=== PATIENT | female | born 1955 | race Caucasian/White ===

== ENCOUNTER → 2016-10-31 | Outpatient (CLI) | payer OTHER ==
[~2016-10-31] MED LIST: ACET-1256 PO; ADVIN50050 INH; ALBUAER19 INH; CYPR4TAB31 PO; GLC500 PO; LEVO25TA5 PO; LPR25 PO; MULT-884 PO; OMEP40CA PO; TRAM-10 PO
[2016-10-31 12:54] LABS: ALB/GLOB RATIO 1.2 (0.9-2); ALKALINE PHOSPHATASE 62 U/L (45-117); ALT/SGPT 17 U/L (12-78); AST/SGOT 13 U/L (15-37); BLOOD UREA NITROGEN 20 mg/dl (7-18); BUN/CREATININE RATIO 20.6 (10-20); CALCIUM 9.2 mg/dl (8.5-10.1); CARBON DIOXIDE 27 mmol/L (21-32); CHLORIDE 105 mmol/L (98-107); CREATININE 0.99 mg/dl (0.60-1.20); GLUCOSE 99 mg/dl (70-99); POTASSIUM 4.7 mmol/L (3.5-5.1); SODIUM 141 mmol/L (136-145)
== END | disposition home or self-care (01) ==
LOC: C.LABBFT 10:32
PROVIDERS: ATTEND Nurse Practitioner
DX: E88.81 Metabolic syndrome and other insulin resistance (principal)

== ENCOUNTER → 2017-08-07 | Outpatient (CLI) | payer OTHER | END | disposition home or self-care (01) | LOC: C.LABSPEC 17:09 | PROVIDERS: ATTEND Dermatology | DX: I87.2 Venous insufficiency (chronic) (peripheral) (principal) ==

== ENCOUNTER → 2017-08-09 | Outpatient (CLI) | payer OTHER ==
[2017-08-09 12:22] LABS: ESTIMATED AVERAGE GLUCOSE 111 mg/dl; HA1C FLAG Normal (Normal)
[2017-08-09 12:32] LABS: ALT/SGPT 16 U/L (12-78); AST/SGOT 11 U/L (15-37); BLOOD UREA NITROGEN 26 mg/dl (7-18); BUN/CREATININE RATIO 28.9 (10-20); CARBON DIOXIDE 26 mmol/L (21-32); CHLORIDE 110 mmol/L (98-107); GLUCOSE 93 mg/dl (70-99); POTASSIUM 3.9 mmol/L (3.5-5.1); SODIUM 140 mmol/L (136-145)
[2017-08-09 12:40] LABS: ALB/GLOB RATIO 1.1 (0.9-2); ALKALINE PHOSPHATASE 73 U/L (45-117); CHOLESTEROL 163 mg/dl (0-200); CHOLESTEROL/HDL RATIO 2.4; HDL CHOLESTEROL 68 mg/dl; LDL CHOLESTEROL CALCULATED 76 mg/dl; TRIGLYCERIDES 96 mg/dl (0-150); VERY LOW DENSITY LIPOPROT CALC 19 mg/dl
== END | disposition home or self-care (01) ==
LOC: C.LABBFT 08:42
PROVIDERS: ATTEND Nurse Practitioner
DX: E03.9 Hypothyroidism, unspecified (principal); E88.81 Metabolic syndrome and other insulin resistance

== ENCOUNTER → 2017-11-28 | Outpatient (CLI) | payer OTHER ==
[2017-11-28 17:15] LABS: BASO % 0.6 %; BASO ABS # 0.06 K/uL (0-0.2); EOS % 3.1 %; EOS ABS # 0.29 K/uL (0-0.5); HEMATOCRIT 42.3 % (37-47); HEMOGLOBIN 13.7 g/dL (12.0-16.0); IG# 0.03 K/uL (0.00-0.02); LYMPH % 28.3 %; LYMPH ABS # 2.62 K/uL (1.2-3.4); MEAN CELL VOLUME 99.5 fL (80-100); MEAN CORPUSCULAR HEMOGLOBIN 32.2 pg (25-34); MEAN CORPUSCULAR HGB CONC 32.4 g/dl (32-36); MEAN PLATELET VOLUME 10.5 fL (7.4-10.4); MONO % 8.2 %; MONO ABS # 0.76 K/uL (0.11-0.59); NEUT % 59.5 %; NEUT ABS # 5.49 K/uL (1.4-6.5); PLATELET COUNT 305 K/uL (130-400); RED CELL DISTRIBUTION WIDTH CV 13.9 % (11.5-14.5); RED CELL DISTRIBUTION WIDTH SD 50.6 fL (36.4-46.3); WHITE BLOOD COUNT 9.25 K/uL (4.8-10.8)
[2017-11-28 17:38] LABS: BLOOD UREA NITROGEN 24 mg/dl (7-18); CALCIUM 9.1 mg/dl (8.5-10.1); CARBON DIOXIDE 27 mmol/L (21-32); CREATININE 1.01 mg/dl (0.60-1.20); GLUCOSE 92 mg/dl (70-99); POTASSIUM 4.4 mmol/L (3.5-5.1); SODIUM 138 mmol/L (136-145)
== END | disposition home or self-care (01) ==
LOC: C.LABBFT 13:41
PROVIDERS: ATTEND Nurse Practitioner
DX: E55.9 Vitamin D deficiency, unspecified (principal); E88.81 Metabolic syndrome and other insulin resistance

== ENCOUNTER 2019-07-25 06:17 | Inpatient (IN) ==
--- NOTE | 2019-06-17 09:18 | PAT Medication Instructions ---
Medication Instructions Date of Service June 17, 2019 Home Medications Medication Instructions Recorded fluticasone propionate 50 2 sprays INTRANASAL DAILY #19.8 gm 03/31/19 mcg/actuation nasal spray,suspension meloxicam 7.5 mg tablet 7.5 mg PO BID PRN #60 tab 03/31/19 albuterol sulfate HFA 90 mcg/actuation aerosol inhaler 2 inh INHALATION UD PRN ascorbate calcium (vitamin C) 500 mg tablet 500 mg PO DAILY escitalopram 10 mg tablet 10 mg PO QAM fluticasone 500 mcg-salmeterol 50 mcg/dose blistr powdr for inhalation 1 puffs INHALATION BID fluticasone propionate 50 mcg/actuation nasal spray,suspension 2 sprays INTRANASAL DAILY levothyroxine 25 mcg tablet 25 mcg PO QAM meloxicam 7.5 mg tablet 7.5 mg PO BID PRN metformin 500 mg tablet 500 mg PO BID metoprolol succinate ER 100 mg tablet,extended release 24 hr 100 mg PO BID multivitamin tablet 1 tab PO DAILY omeprazole 40 mg capsule,delayed release 40 mg PO QAM silver sulfadiazine 1 % topical cream 1 appln TOPICAL UD PRN tramadol 50 mg tablet 50 mg PO BID PRN ASK your surgeon for instructions meloxicam 7.5 mg tablet 7.5 mg PO BID PRN STOP taking 24 hours before surgery silver sulfadiazine 1 % topical cream 1 appln TOPICAL UD PRN DO NOT take the morning of surgery ascorbate calcium (vitamin C) 500 mg tablet 500 mg PO DAILY metformin 500 mg tablet 500 mg PO BID multivitamin tablet 1 tab PO DAILY Take morning of surgery With a small sip of water, OTHERWISE NOTHING TO EAT OR DRINK AFTER MIDNIGHT: albuterol sulfate HFA 90 mcg/actuation aerosol inhaler 2 inh INHALATION UD PRN (use if needed; please bring with you to hospital day of surgery if possible) escitalopram 10 mg tablet 10 mg PO QAM fluticasone 500 mcg-salmeterol 50 mcg/dose blistr powdr for inhalation 1 puffs INHALATION BID fluticasone propionate 50 mcg/actuation nasal spray,suspension 2 sprays INTRANASAL DAILY levothyroxine 25 mcg tablet 25 mcg PO QAM metoprolol succinate ER 100 mg tablet,extended release 24 hr 100 mg PO BID omeprazole 40 mg capsule,delayed release 40 mg PO QAM tramadol 50 mg tablet 50 mg PO BID PRN (okay to take up to 4 hours prior to surgery if needed) Take evening before surgery albuterol sulfate HFA 90 mcg/actuation aerosol inhaler 2 inh INHALATION UD PRN (if needed) fluticasone 500 mcg-salmeterol 50 mcg/dose blistr powdr for inhalation 1 puffs INHALATION BID metformin 500 mg tablet 500 mg PO BID metoprolol succinate ER 100 mg tablet,extended release 24 hr 100 mg PO BID tramadol 50 mg tablet 50 mg PO BID PRN (if needed) Other Notes If you have any questions please call us at [phone] or [phone] or [phone] or [phone]
--- NOTE | 2019-06-18 12:21 | Anesthesiology Consultation ---
Date of Service June 18, 2019 Assessment & Plan (1) Encounter for pre-operative examination: - Check BSG AM DOS Chart Review Chart Review: Pending: Refer to Additional Notes / Consult section (pending preop testing (labs, EKG, CXR)) and Patient seen in Pre Admission Testing Teaching & Discussion Pre-Anesthesia Teaching/Discussion Notes: Instructed NPO after midnight before surgery,except medications with 15 cc of water. Medication instructions provided according to the PAT guidelines. History Surgery Operation Date: 07/25/19 11:30 Proposed Procedures p Left Total Shoulder Arthroplasty - Dakota Hodge DO Height/Weight Height: 5 ft 2 in Weight: 73.3 kg Allergies Allergy/AdvReac Type Severity Reaction Status Date / Time meperidine [From Demerol] AdvReac Unknown N/V Verified 06/11/19 12:23 opiates AdvReac N/V Uncoded 06/18/19 12:26 Medications Home Medications Medication Instructions Recorded Confirmed Last Taken albuterol sulfate HFA 90 2 inh INHALATION UD PRN #3 gm 03/31/19 06/11/19 Unknown mcg/actuation aerosol inhaler ascorbate calcium (vitamin C) 500 500 mg PO DAILY 03/31/19 06/11/19 Unknown mg tablet escitalopram 10 mg tablet 10 mg PO QAM #90 tab 03/31/19 06/11/19 06/11/19 fluticasone 500 mcg-salmeterol 50 1 puffs INHALATION BID #180 ea 03/31/19 06/11/19 06/11/19 mcg/dose blistr powdr for inhalation fluticasone propionate 50 2 sprays INTRANASAL DAILY #19.8 gm 03/31/19 06/11/19 Unknown mcg/actuation nasal spray,suspension levothyroxine 25 mcg tablet 25 mcg PO QAM #90 tab 03/31/19 06/11/19 06/11/19 meloxicam 7.5 mg tablet 7.5 mg PO BID PRN #60 tab 03/31/19 06/11/19 Unknown metformin 500 mg tablet 500 mg PO BID #180 tab 03/31/19 06/11/19 06/11/19 metoprolol succinate ER 100 mg 100 mg PO BID #90 tab 03/31/19 06/11/19 Unknown tablet,extended release 24 hr multivitamin tablet 1 tab PO DAILY 03/31/19 06/11/19 Unknown omeprazole 40 mg capsule,delayed 40 mg PO QAM #180 cap 03/31/19 06/11/19 Unknown release silver sulfadiazine 1 % topical 1 appln TOPICAL UD PRN #1 gm 03/31/19 06/11/19 Unknown cream tramadol 50 mg tablet 50 mg PO BID PRN #60 tab 03/31/19 06/11/19 Unknown Past Medical History Medical History Supraventricular tachycardia no issues x 5+ years; controlled with beta gabriel/PCP monitoring Obesity Acid reflux controlled Anxiety and depression Asthma controlled Diabetes NIDDM Hypothyroid Osteoarthritis Osteopenia borderline (cervical, back) Spinal stenosis Exercise / Class Metabolic Activity III < 4 Walking/Shop/Light housework Past Family History Family History Grandmother Breast cancer Aunt Colon cancer Uncle Colon cancer Unknown No problems noted. Grandmother Ovarian cancer Other Family history of diabetes mellitus Past Surgical History Surgical History History of breast biopsy LEFT History of colonoscopy History of ear, nose, and throat (ENT) surgery RIGHT SALIVARY GLAND REMOVED History of lymph node biopsy History of Excisional Lymph Node Biopsy (RIGHT AXILLARY) History of tooth extraction Past Anesthesia History No Hx of Anesthesia Complications (except post-op nausea*) and No Family Hx of Anesthesia Complications History of PONV History of PONV (+ nausea) and Hx of Motion Sickness Social History Smoking Status: Former smoker Do You Dip or Chew Tobacco: No Smoking End Date: QUIT AGE 28 Hx Alcohol Use: Yes Alcohol type: wine alcohol intake frequency: a few times a week Hx Substance Use: No substance use type: prescription drug Review of Systems Reflux controlled. Patient denies chest pain, shortness of breath, cough, wheezing, palpitations. Physical Exam Vital Signs VITALS BP 106/72 P 66 TEMP 97.5 SP02 98%RA RESP 18 PHYSICAL Full neck and c-spine range of motion. Full TMJ range of motion. TMD 1 finger breaths Mallampati Score 3 Dentition: lower front chipped teeth, missing left lower side/molars Lungs: clear throughout to auscultation Cardiac: regular rate and rhythm, no murmurs noted Spine: normal Carotid arteries: negative bruit Extremities: no edema
[2019-06-18 12:43] LABS: Basophils # (auto) 0.08 K/uL (0-0.2); Basophils % (auto) 1.1 %; Eosinophils # (auto) 0.19 K/uL (0-0.5); Eosinophils % (auto) 2.7 %; Hematocrit (blood only) 41.4 % (37-47); Hemoglobin 13.8 g/dL (12.0-16.0); Immature Granulocytes # (auto) 0.01 K/uL (0.00-0.02); Immature Granulocytes % (auto) 0.1 %; Lymphocytes # (auto) 2.19 K/uL (1.2-3.4); Lymphocytes % (auto) 31.2 %; Mean Corpuscular Hemoglobin 33.3 pg (25-34); Mean Corpuscular Hgb Conc 33.3 g/dL (32-36); Mean Platelet Volume 10.3 fL (7.4-10.4); Monocytes # (auto) 0.67 K/uL (0.11-0.59); Monocytes % (auto) 9.5 %; Neutrophils # (auto) 3.88 K/uL (1.4-6.5); Neutrophils % (auto) 55.4 %; Platelet Count 264 K/uL (130-400); RDW Coefficient of Variation 13.6 % (11.5-14.5); RDW Standard Deviation 49.5 fL (36.4-46.3); Red Blood Count 4.14 M/uL (4.2-5.4); White Blood Count 7.02 K/uL (4.8-10.8)
[2019-06-18 12:53] LABS: Partial Thromboplastin Time 26.8 Seconds (21.0-31.0); Prothrombin Time 10.3 Seconds (9.0-12.0)
[2019-06-18 12:58] LABS: Calcium 8.9 mg/dl (8.5-10.1); Creatinine Clr Calc Pharmacy 51.5 ml/min; Est GFR (African American) 66.8; Est GFR (Non-African American) 57.7; Potassium 4.5 mmol/L (3.5-5.1)
[2019-06-18 13:00] LABS: Estimated Average Glucose 108 mg/dl; Hemoglobin A1C 5.4 % (4.5-5.6)
--- NOTE | 2019-06-18 13:03 | XRay Report ---
XR chest Pre-admission PA/Lat CLINICAL HISTORY: 63 years-old Female presenting with preoperative assessment. TECHNIQUE: PA and lateral views of the chest were obtained. COMPARISON: None. FINDINGS: Cardiomediastinal silhouette normal. Lungs and pleural spaces clear. Degenerative changes of the thor acic spine. Advanced degenerative changes of the left glenohumeral joint. Upper abdomen normal. IMPRESSION: 1. No acute cardiopulmonary disease. Electronically signed by: Desmond Sanchez M.D. 06/18/2019 1:01 PM
--- NOTE | 2019-07-24 14:46 | History & Physical Report ---
Date of Service July 24, 2019 Assessment & Plan (1) Osteoarthritis of left shoulder: We will proceed with a left total shoulder arthroplasty. Postoperatively she will be placed in an arm sling and kept overnight for postoperative medical management. She will plans to use [facility] in [place] upon discharge. Present on Admission?: Yes History of Present Illness Chief Complaint: Primary osteoarthritis of the left shoulder Primary Care Provider: JAE Johnson Brigid is a pleasant 63-year-old female who is been dealing with a several year history of increasing left shoulder pain. X-rays and clinical examination have been diagnostic for primary osteoarthritis of the left shoulder. After failing extensive conservative treatment, she has elected to proceed with a left total shoulder arthroplasty. Allergies Allergy/AdvReac Type Severity Reaction Status Date / Time meperidine [From Demerol] AdvReac Unknown N/V Verified 06/11/19 12:23 opiates AdvReac N/V Uncoded 06/18/19 12:26 Home Medications Home Medications Medication Instructions Recorded Confirmed Type ascorbate calcium (vitamin C) 500 500 mg PO DAILY 03/31/19 07/22/19 History mg tablet escitalopram oxalate 10 mg tablet 10 mg PO QAM #90 tab 03/31/19 07/22/19 History fluticasone 500 mcg-salmeterol 50 1 puffs INHALATION BID #180 ea 03/31/19 07/22/19 History mcg/dose blistr powdr for inhalation fluticasone propionate 50 2 sprays INTRANASAL DAILY #19.8 gm 03/31/19 07/22/19 Rx mcg/actuation nasal spray,suspension levothyroxine 25 mcg tablet 25 mcg PO QAM #90 tab 03/31/19 07/22/19 History meloxicam 7.5 mg tablet 7.5 mg PO BID PRN #60 tab 03/31/19 07/22/19 Rx metoprolol succinate 100 mg 100 mg PO BID #90 tab 03/31/19 07/22/19 History tablet,extended release 24 hr multivitamin 1 tab PO DAILY 03/31/19 07/22/19 History omeprazole 40 mg capsule,delayed 40 mg PO QAM #180 cap 03/31/19 07/22/19 History release albuterol sulfate 90 mcg/actuation 2 inh INHALATION .COMPLEX PRN #54 07/01/19 07/22/19 Rx aerosol inhaler gm tramadol 50 mg tablet 50 mg PO BID PRN #60 tab 07/17/19 07/22/19 Rx metformin 500 mg tablet 500 mg PO BID #180 tab 07/24/19 Rx Past Med/Surg History Medical History (Updated 07/24/19 @ 14:45 by Dakota Hodge DO) Acid reflux controlled Anxiety and depression Asthma controlled Diabetes NIDDM Hypothyroid Obesity Osteoarthritis Osteopenia borderline (cervical, back) Spinal stenosis Supraventricular tachycardia no issues x 5+ years; controlled with beta gabriel/PCP monitoring Surgical History History of breast biopsy LEFT History of colonoscopy History of ear, nose, and throat (ENT) surgery RIGHT SALIVARY GLAND REMOVED History of lymph node biopsy History of Excisional Lymph Node Biopsy (RIGHT AXILLARY) History of tooth extraction Family History Grandmother Breast cancer Aunt Colon cancer Uncle Colon cancer Unknown No problems noted. Grandmother Ovarian cancer Other Family history of diabetes mellitus Social History (Updated 07/22/19 @ 12:51 by Kiah Alvarez) Preferred Language: Welsh Communication Ability: Effective Beliefs That Will Affect Care: None Current Living Situation: Spouse Feels Safe at Home: Yes Smoking Status: Former smoker Age Started Using Tobacco: 14 ; Age Quit Using Tobacco: 28 ; packs per day: 1.5 ; Cigarettes Per Day: 30 ; Number of Years Since Quit: 35 ; Hx Alcohol Use: Yes Alcohol type: wine Hx Substance Use: No Review of Systems All systems reviewed & are unremarkable except as noted in HPI & below Physical Exam Constitutional: WD/WN, vitals as above Eyes: PERRL, conjunctivae normal, anicteric sclerae ENMT: external ear and nose normal, oropharynx normal Neck: trachea midline, no thyromegaly Respiratory: normal respiratory effort Cardiovascular: RRR, no murmur, no edema Gastrointestinal (Abdomen): normal bowel sounds, soft, nontender, no hepatosplenomegaly Musculoskeletal: Physical examination of the left shoulder reveals decreased range of motion and crepitis throughout. There is good strength with full can testing and external rotation. There is tenderness palpation along the anterior glenohumeral joint line. The right upper extremity is neurovascularly intact. Psychiatric: A+Ox3, euthymic affect Results & Data Diagnostic Findings Radiographs of the left shoulder show osteoarthritis of the glenohumeral joint. There is joint space narrowing, osteophyte formation, and [id number] articulation.
[~2019-07-25 06:17] MED LIST changes: -ACET-1256 PO; -ADVIN50050 INH; -ALBUAER19 INH; -CYPR4TAB31 PO; -GLC500 PO; -LEVO25TA5 PO; -LPR25 PO; +LR 15ML/HR IV SCH; +LR 60ML/HR IV SCH; -MULT-884 PO; -OMEP40CA PO; +ROPIVACAINE 0.5% HCL/PF 150 MG, BUPIVACAINE 0.5% MPF 30 ML, EPINEPHrine 30MG/30ML (OR U... INSTIL SCH; -TRAM-10 PO
[2019-07-25] MEDS ORDERED: ROPIVACAINE 0.5% 5 MG/ML 30 ML VIAL ONE (06:26)
[2019-07-25] MEDS ORDERED: BUPIVACAINE 0.5 % 5 MG/1 ML PF 10ML VIAL ONE (06:27)
--- NOTE | 2019-07-25 06:42 | History & Physical Bridge Note ---
Date of Service July 25, 2019 History & Physical Bridge Note I have examined the patient, reviewed the History & Physical and in the interval since the performance of the History & Physical I have noted the following changes of clinical significance: no changes noted
[2019-07-25] MEDS ORDERED: ORTHO JOINT ANESTHETIC ONE (07:23)
[2019-07-25] MEDS ORDERED: ePHEDrine sulfate 50 MG/ML AMP IV PRN (07:23)
[2019-07-25] MEDS ORDERED: fentaNYL citrate 100 MCG/2 ML VIAL IV PRN (07:23)
[2019-07-25] MEDS ORDERED: ATROPINE SULFATE 0.1 MG/ML 10ML SYR IV PRN (07:23)
[2019-07-25] MEDS ORDERED: ONDANSETRON INJ 2 MG/ML 2 ML VIAL IV PRN ×2 (07:23→11:22)
[2019-07-25] MEDS ORDERED: ROCURONIUM BROMIDE 10 MG/ML 5 ML VIAL ONE (07:34)
[2019-07-25] MEDS ORDERED: MIDAZOLAM HCL 1 MG/ML 2ML VIAL ONE ×2 (07:34→07:35)
[2019-07-25] MEDS ORDERED: GLYCOPYRROLATE 0.2 MG/ML VIAL ONE (07:34)
[2019-07-25] MEDS ORDERED: NEOSTIGMINE METHYLSULFATE 5 MG/5 ML SYR ONE (07:34)
[2019-07-25] MEDS ORDERED: ONDANSETRON INJ 2 MG/ML 2 ML VIAL ONE (07:34)
[2019-07-25] MEDS ORDERED: LIDOCAINE HCL 2% 2 ML VIAL/AMP(20MG/ML) INFIL ONE (07:34)
[2019-07-25] MEDS ORDERED: PROPOFOL IV EMULSION 10 MG/ML 20 ML VIAL IV ONE (07:34)
[2019-07-25] MEDS ORDERED: fentaNYL citrate 100 MCG/2 ML VIAL ONE (07:35)
[2019-07-25] MEDS ORDERED: CEFAZOLIN 2000MG 2,000 MG/15 ML SYR IV ONE (07:35)
[2019-07-25] MEDS ORDERED: CEFAZOLIN 2,000 MG/15 ML IV PUSH IV ONE (07:42)
[2019-07-25] MEDS ORDERED: SCOPOLAMINE 1.5 MG TDSY ONE (07:43)
[2019-07-25] MEDS ORDERED: TRANEXAMIC ACID 1,000 MG in 0.9 % SODIUM CHLORIDE 100 ML IV ONE ×2 (08:13→08:14)
--- NOTE | 2019-07-25 09:43 | Operative Report ---
PG Post Operative Report Pre & Post Diagnosis Operation Date: 07/25/19 08:50 Pre-Op Diagnosis: Left Shoulder Degenerative Joint Disease Post-Op Diagnosis: Left Shoulder Degenerative Joint Disease I identified the patient and participated in the time-out.: Yes Procedure Operation Date: 07/25/19 08:50 Actual Procedures p Left Total Shoulder Arthroplasty, Cemented(Left) - Dakota Hodge DO Surgeon Dakota Hodge DO [employer] Dakota Johnson PAC Estimated Blood Loss 150 Findings Consistent with Post-Op Diagnosis Specimens Left humeral head Complications none Disposition Disposition: Recovery Room Indications Brigid is a pleasant 63-year-old female who presented my office with chronic increasing left shoulder pain. X-rays and clinical examination were diagnostic for primary osteoarthritis of the left shoulder. After failing conservative treatment, she elected to proceed with a left total shoulder arthroplasty. Description of Procedure Implants used: I used a [employer] Comprehensive total shoulder arthroplasty system with a size 11 press fit mini humeral stem, a size 46 x 18 eccentric humeral head, and a small size glenoid with a Regenerex peg. The glenoid was cemented in place with Palacos G cement. The patient arrived at [facility] for the above procedure. There were seen in the preoperative holding area and the operative extremity was identified and signed. They were given a preoperative antibiotic and an interscalene nerve block. They were taken back to the operating room, laid on table in supine position, and put under general anesthesia. They were then put into the beachchair position. The shoulder was then prepped and draped in sterile fashion. A timeout was done and the patient and the operative extremity was properly identified. A deltopectoral approach was used. Dissection was taken down through the fascia and the deltoid was retracted laterally and the conjoined tendon was retracted medially. The anterior shoulder was exposed. The long head of the biceps tendon was tenodesed to the upper border of the pectoralis major. The subscapularis was then released off the lesser tuberosity with a centimeter of cuff tissue remaining. The inferior capsule was released and the humeral head was dislocated. The rotator cuff was inspected and intact. A canal finding reamer was sent down the center of the humeral canal. Sequential reaming up to a size 11 reamer was done. Offset reamer a proximal humeral resection guide was placed. The proximal humerus was resected at 135 of inclination and 30 of retroversion. Inferior osteophytes were then removed and the glenoid was exposed. Time was spent doing an appropriate labral release. A [employer] signature guide was then attached onto the anterior rim of the glenoid. A 3.2 mm Steinmann pin was then placed in the total shoulder arthroplasty hole. The glenoid was then reamed with a propeller reamer. The central post cutter was then used to prepare for the central boss. The cannulated peripheral peg drill guide was then placed and 3 peg holes were drilled. The final size small glenoid was then cemented in place with Palacos G cement. Surrounding soft tissues were then injected with 100 cc of an orthopedic pain control cocktail. Once cement had dried the proximal humerus was once again exposed. Sequential broaching of the humerus up to a size 11 broach was done. Off that broach a size 46 x 18 eccentric humeral head was trialed. The shoulder was then reduced, brought through a full range of motion and felt to be stable. The shoulder was then dislocated and the broach was removed. The final size 11 mini humeral stem implant was then impacted into place. A size 46 x 18 eccentric humeral head was then impacted onto the humeral stem. The shoulder was then reduced and once again brought through a full range of motion and felt to be stable. The subscapularis was then tenodesed back to the lesser tuberosity with transosseous FiberWire sutures and side to side sutures with the arm in 45 of external rotation. 2 sutures were placed in the lateral rotator interval. A dilute betadyne lavage was then done for 3 minutes. The joint was then irrigated with normal saline solution. Hemostasis was obtained. The skin was then closed with 2-0 Vicryl, 3-0V lock suture, and lis. A soft dressing was placed as well as a regular arm sling. The patient was then extubated and transferred to a hospital bed. There were taken to the postanesthesia care unit in stable condition. The tolerated the procedure well. I attest to the content of the Intraoperative Record and any orders documented therein. Any exceptions are noted below.
--- NOTE | 2019-07-25 10:40 | XRay Report ---
XR shoulder LT min 2V routine CLINICAL HISTORY: Post shoulder surgery postoperative evaluation COMPARISON: 11/24/2013 DISCUSSION: Anatomic alignment posttotal left shoulder arthroplasty. Could contact between prosthetic in an Bone. Expected soft tissue postoperative change. IMPRESSION: Anatomic alignment posttotal left shoulder arthroplasty. The above report was generated using voice recognition software. It may contain grammatical, syntax or spelling errors. Electronically signed by: Yohan Canales M.D. 07/25/2019 10:39 AM
--- NOTE | 2019-07-25 10:43 | Anesthesiology Progress Note ---
Date of Service July 25, 2019 Anesthesia Post Procedure Vital Signs Vital Signs: Temp Pulse Pulse Resp BP Pulse Ox 07/25/19 10:40 63 16 104/68 99 07/25/19 10:30 63 16 123/80 98 07/25/19 10:20 67 16 125/81 100 07/25/19 10:12 96.8 F L 74 18 135/89 100 07/25/19 07:19 97.7 F 70 20 120/84 97 Pain Intensity Left Shoulder: Pain Intensity: 7 Transfer of Care Handoff Completed per policy Notes Mental Status: alert / awake / arousable and participated in evaluation Patient Amnestic to Procedure: Yes Nausea / Vomiting: adequately controlled Pain: adequately controlled Airway Patency, RR, SpO2: stable & adequate BP & HR: stable & adequate Hydration State: stable & adequate Anesthetic Complications: no major complications apparent and Pt Satisfied with anesthetic care
[2019-07-25] MEDS ORDERED: TRAMADOL HCL 50 MG TABLET PO PRN (11:22)
[2019-07-25] MEDS ORDERED: HYDROmorphone INJ 0.5 MG/0.5 ML SYR IV PRN (11:22)
[2019-07-25] MEDS ORDERED: NALOXONE HCL 0.4 MG/1 ML VIAL/CARP IV PRN (11:22)
[2019-07-25] MEDS ORDERED: MAGNESIUM HYDROXIDE SUSP 30 ML UDC PO PRN (11:22)
[2019-07-25] MEDS ORDERED: METOCLOPRAMIDE HCL INJ 5 MG/ML 2 ML VIAL IV PRN (11:22)
[2019-07-25] MEDS ORDERED: BISACODYL 10 MG SUPP PR PRN (11:22)
[2019-07-25] MEDS ORDERED: ALBUTEROL HFA 8 GM INHALER INH PRN (11:22)
[2019-07-25] MEDS: SODIUM CHLORIDE 0.9% 1000ML 1,000 ML IV SCH ×2 (11:47→20:41)
[2019-07-25] MEDS: KETOROLAC TROMETHAMINE 15 MG/ML VIAL IV SCH ×2 (11:59→18:40)
[2019-07-25] MEDS: ACETAMINOPHEN 500 MG TAB PO SCH ×2 (13:33→21:57)
--- NOTE | 2019-07-25 14:30 | Anesthesiology Progress Note ---
Date of Service July 25, 2019 Subjective I evaluated the patient 2/2 her left eye pain. The patient stated that "her left eye felt irritated." She stated having some blurry vision earlier but that has almost resolved. She states discomfort when opening/closing her eyelid. There was no noticeable deformity of the eye. I counseled her on the likelihood of having a corneal abrasion. I recommended an erythromycin ointment. I recommended that she notify nursing if her eye pain worsened or her vision worsened. The patient was understanding, and she was otherwise satisfied with her anesthetic care. Physical Exam Vital Signs: Last Vital Signs Temp 97.5 F L 07/25/19 14:21 Pulse 98 H 07/25/19 14:21 Resp 18 07/25/19 14:21 BP 115/75 07/25/19 14:21 Pulse Ox 98 07/25/19 14:21 Results & Data Medications Administered Acetaminophen (Tylenol) 1,000 mg PO Q8 AIDEE Stop: 08/24/19 13:59 Last Admin: 07/25/19 13:33 Dose: 1,000 mg Documented by: [id number] Sodium Chloride (Nss 1000ml) 1,000 mls @ 100 mls/hr IV .Q10H AIDEE Stop: 07/26/19 06:00 Last Infusion: 07/25/19 11:52 Dose: 0 mls/hr Documented by: [id number] Admin: 07/25/19 11:47 Dose: 100 mls/hr Documented by: [id number] Ketorolac Tromethamine (Toradol) 15 mg IV Q6H AIDEE Stop: 07/27/19 06:01 Last Admin: 07/25/19 11:59 Dose: 15 mg Documented by: [id number]
[2019-07-25] MEDS: CEFAZOLIN 2000MG 2,000 MG/15 ML SYR IV SCH (15:59)
[2019-07-25] MEDS: ERYTHROMYCIN OP OINT 5 MG/GM 3.5 GM TUBE OP SCH ×2 (16:02→20:37)
[2019-07-25] MEDS: FLUTICASONE/SALMETEROL (ADVAIR) 500/50 INH 14 PUFF INH SCH (20:36)
[2019-07-25] MEDS: DOCUSATE SODIUM 100 MG CAP PO SCH (20:38)
[2019-07-25] MEDS: METOPROLOL SUCC 50MG EXT REL TAB PO SCH (20:39)
[2019-07-25] MEDS ORDERED: SENNA 8.6 MG TAB PO SCH (21:00)
[2019-07-26] MEDS: CEFAZOLIN 2000MG 2,000 MG/15 ML SYR IV SCH (00:50)
[2019-07-26] MEDS: KETOROLAC TROMETHAMINE 15 MG/ML VIAL IV SCH ×2 (00:50→05:25)
[2019-07-26] MEDS: ACETAMINOPHEN 500 MG TAB PO SCH (05:25)
[2019-07-26 05:54] LABS: Basophils # (auto) 0.04 K/uL (0-0.2); Basophils % (auto) 0.3 %; Eosinophils # (auto) 0.13 K/uL (0-0.5); Eosinophils % (auto) 1.1 %; Hematocrit (blood only) 37.8 % (37-47); Hemoglobin 12.1 g/dL (12.0-16.0); Immature Granulocytes # (auto) 0.03 K/uL (0.00-0.02); Immature Granulocytes % (auto) 0.3 %; Lymphocytes # (auto) 2.06 K/uL (1.2-3.4); Lymphocytes % (auto) 17.6 %; Mean Corpuscular Hemoglobin 32.6 pg (25-34); Mean Corpuscular Volume 101.9 fL (80-100); Mean Platelet Volume 10.3 fL (7.4-10.4); Monocytes # (auto) 1.33 K/uL (0.11-0.59); Monocytes % (auto) 11.3 %; Neutrophils # (auto) 8.13 K/uL (1.4-6.5); Neutrophils % (auto) 69.4 %; Platelet Count 224 K/uL (130-400); RDW Coefficient of Variation 13.8 % (11.5-14.5); RDW Standard Deviation 51.4 fL (36.4-46.3); Red Blood Count 3.71 M/uL (4.2-5.4); White Blood Count 11.72 K/uL (4.8-10.8)
[2019-07-26 06:23] LABS: Calcium 8.5 mg/dl (8.5-10.1); Est GFR (African American) 59.7; Est GFR (Non-African American) 51.5; Potassium 4.2 mmol/L (3.5-5.1)
[2019-07-26] MEDS ORDERED: LEVOTHYROXINE SODIUM 25 MCG TABLET PO SCH (06:30)
[2019-07-26] MEDS: ERYTHROMYCIN OP OINT 5 MG/GM 3.5 GM TUBE OP SCH (08:34)
[2019-07-26] MEDS: DOCUSATE SODIUM 100 MG CAP PO SCH (08:34)
[2019-07-26] MEDS: FLUTICASONE/SALMETEROL (ADVAIR) 500/50 INH 14 PUFF INH SCH (08:34)
[2019-07-26] MEDS: METOPROLOL SUCC 50MG EXT REL TAB PO SCH (08:35)
--- NOTE | 2019-07-26 08:57 | Orthopedic Progress Note ---
Date of Service July 26, 2019 Assessment & Plan (1) History of left shoulder replacement: Overall she is doing very well. She is not having much pain in the left shoulder. She will be seen by physical therapy today for range of motion exercises. She can be discharged home later today. She will follow-up with orthopedics in 2 weeks. Present on Admission?: Yes Subjective Brigid was seen and examined at bedside this morning. Overall she is doing very well. She is not having much pain in the left shoulder. She was able to get some sleep last night. She has no complaints. Physical Exam Musculoskeletal: On physical examination of the left shoulder, the dressing is clean and dry. Her radial, median, and ulnar nerves are checked and intact at the wrist. Her axillary nerve is not checked yet. Results & Data Vital Signs (Past 12 Hours) Vital Signs Temp Pulse Resp BP Pulse Ox 07/26/19 08:04 36.8 C 66 16 104/68 95 07/26/19 03:20 99/60 L 07/26/19 03:19 36.9 C 66 16 88/57 L 94 07/25/19 22:55 36.7 C 72 16 110/70 95 Laboratory Results H & H 06/18/19 07/26/19 Range/Units 12:15 05:19 Hgb 13.8 12.1 (12.0-16.0) g/dL Hct 41.4 37.8 (37-47) % Coagulation 06/18/19 Range/Units 12:15 INR 1.0 (0.9-1.1) Diagnostic Findings Postoperative x-rays of the left shoulder show the prosthesis to be in anatomic alignment without any evidence of fracture, dislocation, or loosening. PG Care Time/CCT Total # of Minutes Spent Total Time Spent with Patient: Total time spent is greater than 50% in coordination of care (as documented) at patient's floor/unit and/or counseling patient:
--- NOTE | 2019-07-26 08:59 | Discharge Summary ---
Date of Service July 26, 2019 Admission HPI Per Admitting Provider Brigid is a pleasant 63-year-old female who is been dealing with a several year history of increasing left shoulder pain. X-rays and clinical examination have been diagnostic for primary osteoarthritis of the left shoulder. After failing extensive conservative treatment, she has elected to proceed with a left total shoulder arthroplasty. Principal Diagnosis Left total shoulder arthroplasty Discharge Data Allergies Allergy/AdvReac Type Severity Reaction Status Date / Time meperidine [From Demerol] AdvReac Unknown N/V Verified 07/25/19 07:12 opiates AdvReac N/V Uncoded 07/25/19 07:12 Consultations 07/25/19 11:22 Consult Case Management - Discharge Planning Routine Procedures Performed Operation Date: 07/25/19 08:50 Actual Procedures p Left Total Shoulder Arthroplasty, Cemented(Left) - Dakota Hodge DO Ordered Studies 07/25/19 05:00 US - OR guided needle placemen Routine Hospital Course (1) History of left shoulder replacement: On July 25, [address] [facility] and underwent a left total shoulder arthroplasty without complication. She had a general anesthetic and a left interscalene nerve block. Postoperatively she was placed in a sling and discharged to general orthopedic floors. Her hospital course is uneventful. On postop day #1 her H&H was stable and her pain was well controlled. She was able to participate well with physical therapy doing ambulation and range of motion exercises. She was then discharged to home. She will follow-up with orthopedics in 2 weeks. Total Time Total Time Spent Total Time Spent (In Minutes): 20 Discharge Plan Discharge Items Reason For Visit: Left Shoulder Degenerative Joint Disease Medications and DC Order Prescriptions: No Action albuterol sulfate 90 mcg/actuation HFA aerosol inhaler 2 inh inhalation .COMPLEX PRN (Reason: ASTHMA) Qty: 54 RF: 3 tramadol [Ultram] 50 mg tablet 50 mg PO BID PRN (Reason: Pain) Qty: 60 RF: 5 metformin 500 mg tablet 500 mg PO BID Qty: 180 RF: 3 escitalopram oxalate 10 mg tablet 10 mg PO QAM Qty: 90 RF: 0 levothyroxine 25 mcg tablet 25 mcg PO QAM Qty: 90 RF: 0 metoprolol succinate 100 mg tablet extended release 24 hr 100 mg PO BID Qty: 90 RF: 0 omeprazole 40 mg capsule,delayed release(DR/EC) 40 mg PO QAM Qty: 180 RF: 0 multivitamin [Daily Multiple] tablet 1 tab PO DAILY RF: 0 fluticasone propion-salmeterol 500-50 mcg/dose blister with device 1 puffs inhalation BID Qty: 180 RF: 0 meloxicam 7.5 mg tablet 7.5 mg PO BID PRN (Reason: pain) Qty: 60 RF: 5 fluticasone propionate 50 mcg/actuation spray,suspension 2 sprays intranasal DAILY Qty: 19.8 RF: 5 calcium carbonate-vitamin D3 [Calcium 500 + D (D3)] 500 mg(1,250mg) -125 unit Tablet 1 tab PO DAILY RF: 0 Admission Data Admit Date/Time: 07/25/19 10:16 Attending Provider: Dakota Hodge Admit Provider: Dakota Hodge Primary Care Provider: Vashti Knox
[2019-07-26] MEDS ORDERED: MULTIVITAMIN TAB PO SCH ×2 (09:00)
[2019-07-26] MEDS ORDERED: PANTOprazole 40 MG TAB PO SCH (09:00)
[2019-07-26] MEDS ORDERED: FLUTICASONE PROPIONATE NA SPR 16 GM BTL SCH (09:00)
[2019-07-26] MEDS ORDERED: ESCITALOPRAM OXALATE 10 MG TAB PO SCH (09:00)
== END 2019-07-26 11:09 | disposition home or self-care (01) | DRG 483 ==
LOC: ASU 06:17 → 3E 10:16